=== PATIENT | male | born 1945 | race Caucasian/White ===

== ENCOUNTER 2016-04-09 08:29 | Outpatient (CLI) | payer OTHER ==
[~2016-04-09] VITALS: Ht 172.7 cm; Wt 79.4 kg
[2016-04-09] MEDS ORDERED: FUROSEMIDE 20 MG/2 ML VIAL IVP ONE (09:00)
== END 2016-04-09 17:55 | disposition home or self-care (01) ==
LOC: SNM 08:29
PROVIDERS: ATTEND Specialist
DX: C67.9 Malignant neoplasm of bladder, unspecified (principal); Z93.50 Unspecified cystostomy status
CPT/HCPCS: 78708; A9562; J1940